=== PATIENT | female | born 1995 | race Asian ===

== ENCOUNTER 2018-07-24 16:59 | Emergency (ER) | payer OTHER ==
[2018-07-24 17:25] VITALS: BP 101/68; PULSE 64; TEMP 97.3; BMI 17.6
--- NOTE | 2018-07-24 17:26 | PDOC ---
Rapid Medical Evaluation Time Seen by Provider: 07/24/18 17:22 Medical Evaluation: 07/24/18 17:23 The patient complains of: preesure like headache x 3 months intermittently, seen by pmd dr sherman with no relief of meds prescribed, took ibuprofen with no relief, no vomiting no visual changes. + photo/phonosensitivity with headache to occipital area On brief exam: vss, The patient ordered for: none The patient to proceed to the ED Discharge Disposition - Diagnosis Headache - Referrals - Patient Instructions - Post Discharge Activity
--- NOTE | 2018-07-24 17:55 | PDOC ---
History of Present Illness - General Chief Complaint: Headache Stated Complaint: HEADACHE Time Seen by Provider: 07/24/18 17:22 - History of Present Illness Initial Comments: 23-year-old female with out significant past medical history presents for evaluation of headache. She states the headache has been present for 2 weeks despite Motrin and Tylenol. She had a similar headache about 3 months ago seen by her primary care physician who prescribed anti-inflammatory medication and again it did not help but just kind of subsided on its own. She has no other associated symptoms only photophobia when the headache is present. Her headache is bandlike pressure around her head coming from her neck. 07/24/18 17:53 Past History - Past Medical History Allergies/Adverse Reactions: Allergies Allergy/AdvReac Type Severity Reaction Status Date / Time No Known Allergies Allergy Verified 07/24/18 17:26 Home Medications: Ambulatory Orders NK [No Known Home Medication] 07/24/18 - Suicide/Smoking/Psychosocial Hx Smoking History: Never smoked Have you smoked in the past 12 months: No Information on smoking cessation initiated: No Hx Alcohol Use: No Drug/Substance Use Hx: No Review of Systems - Review of Systems Neurological: Yes: See HPI, Headache All Other Systems: Reviewed and Negative *Physical Exam - Vital Signs Last Vital Signs Temp Pulse Resp BP Pulse Ox 97.3 F L 64 16 101/68 100 07/24/18 17:23 07/24/18 17:23 07/24/18 17:23 07/24/18 17:23 07/24/18 17:23 - Physical Exam Comments: 07/24/18 17:54 HEAD: NC/AT EYES: Conjuntiva clear, PERRL, EOMI Ears: Canals and TM's normal NOSE: No d/c THROAT: Moist mucous membrances, oral pharanx clear, uvula midline NECK: Supple without adenopathy CARDIAC: S1 S2 LUNGS: CTA Full and Equal breath sounds ABDOMEN: Soft NT ND MS: Full ROM in all joints without edema NEUROLOGIC: No gross sensory or motor deficits, NVID SKIN: Normal color and temperature no lesions or rashes Medical Decision Making - Medical Decision Making 07/24/18 21:33 FRANKEL rsolved after solu medrol *DC/Admit/Observation/Transfer Diagnosis at time of Disposition: Headache - Discharge Dispostion Disposition: HOME Condition at time of disposition: Improved Decision to Admit order: No - Referrals Referrals: Harris Dolan MD [Primary Care Provider] - Rafat Chapman MD [Staff Physician] - - Patient Instructions Printed Discharge Instructions: DI for Headache Additional Instructions: Tylenol and Motrin as directed U headache should it return. Follow-up with neurology for further evaluation and treatment options of her headache. Return to the emergency room should symptoms worsen or go unresolved. - Post Discharge Activity
[2018-07-24] MEDS ORDERED: ACETAMINOPHEN 1000 MG/100 ML VIAL (NON FORMULARY) IVPB ONE (19:39)
[2018-07-24] MEDS ORDERED: SODIUM CHLORIDE 0.9% 500 ML INFUS.BAG IV ONE (19:39)
[2018-07-24] MEDS ORDERED: KETOROLAC TROMETHAMINE 30 MG/1 ML VIAL IVPUSH ONE (19:40)
[2018-07-24] MEDS ORDERED: ACETAMINOPHEN INJECTION 100 ML IVPB ONE (20:12)
[2018-07-24] MEDS ORDERED: KETOROLAC TROMETHAMINE 30 MG/1 ML VIAL ONE (20:20)
[2018-07-24] MEDS ORDERED: methylPREDNISolone NA SUCC 125 MG/2 ML VIAL IVPB ONE (20:59)
[2018-07-24] MEDS ORDERED: methylPREDNISolone NA SUCC 125 MG/2 ML VIAL ONE (21:02)
== END 2018-07-24 21:39 | disposition home or self-care (01) ==
LOC: JERFT 16:59
PROC: 3E033NZ Introduction of Analgesics, Hypnotics, Sedatives into Peripheral Vein, Percutaneous Approach (ICD-10-PCS; principal; 2018-07-24)
PROC: 3E033GC Introduction of Other Therapeutic Substance into Peripheral Vein, Percutaneous Approach (ICD-10-PCS; 2018-07-24)
PROC: 3E0333Z Introduction of Anti-inflammatory into Peripheral Vein, Percutaneous Approach (ICD-10-PCS; 2018-07-24)
PROC: 3E0337Z Introduction of Electrolytic and Water Balance Substance into Peripheral Vein, Percutaneous Approach (ICD-10-PCS; 2018-07-24)
DX: R51 Headache (principal)
CPT/HCPCS: 70450-TC; 84703; 99281-25; J0131

== ENCOUNTER 2022-07-24 23:18 | Emergency (ER) | payer OTHER ==
[2022-07-24 23:26] VITALS: BP 123/86; PULSE 109; RESP 18; TEMP 97.7; BMI 22.6
[2022-07-25 00:42] LABS: PH,URINE 6.5 (5.0-8.0); URINE APPEARANCE CLEAR; URINE BILIRUBIN NEGATIVE (NEGATIVE); URINE GLUCOSE (UA) NEGATIVE (NEGATIVE); URINE KETONE NEGATIVE (NEGATIVE); URINE LEUK ESTERASE TRACE (NEGATIVE); URINE NITRITE POSITIVE (NEGATIVE); URINE PROTEIN 2+ (NEGATIVE); URINE UROBILINOGEN 0.2 mg/dL (0.2-1.0)
[2022-07-25 01:11] LABS: EPI CELLS 19.7 /uL (0-25.1); HYALINE CASTS 0.37 /uL (0-3.1); URINE BACTERIA 70.6 /uL (0-1359); URINE RBC 17.9 /uL (0-23.9); URINE WBC 20.9 /uL (0-25.8)
[2022-07-25 01:13] LABS: URINE COLOR DK YELLOW
[2022-07-25] MEDS ORDERED: NITROFURANTOIN MACROCRYSTAL 50 MG CAPSULE (FP) PO SCH (01:15)
[2022-07-25] MEDS ORDERED: PHENAZOPYRIDINE HCL 100 MG TABLET (FP) PO ONE (01:23)
[2022-07-25] MEDS ORDERED: PHENAZOPYRIDINE HCL 100 MG TABLET (FP) ONE (01:30)
[2022-07-25] MEDS ORDERED: NITROFURANTOIN MACROCRYSTAL 50 MG CAPSULE (FP) ONE (01:30)
== END 2022-07-25 01:40 | disposition home or self-care (01) ==
LOC: JER 23:18
DX: N39.0 Urinary tract infection, site not specified (principal)
CPT/HCPCS: 81003; 84703; 87086; 87186; 99283-25

== ENCOUNTER 2023-05-14 04:25 | Day surgery (SDC) | payer OTHER ==
[2023-05-10 15:00] VITALS: BMI 21.7
[2023-05-14 11:19] VITALS: TEMP 98.6
[2023-05-14 11:49] VITALS: RESP 22
[2023-05-14 11:50] VITALS: BP 110/67; PULSE 66
== END 2023-05-14 11:58 | disposition home or self-care (01) ==
LOC: JASU-ENDO 04:25
PROVIDERS: ATTEND Internal Medicine Gastroenterology
PROC: 0DB78ZX Excision of Stomach, Pylorus, Via Natural or Artificial Opening Endoscopic, Diagnostic (ICD-10-PCS; 2023-05-14)
PROC: 0DB68ZX Excision of Stomach, Via Natural or Artificial Opening Endoscopic, Diagnostic (ICD-10-PCS; principal; 2023-05-14 11:30)
DX: K29.50 Unspecified chronic gastritis without bleeding (principal)
CPT/HCPCS: 81025; 88305-TC; 88342-TC